=== PATIENT | female | born 1975 | race Caucasian/White ===

== ENCOUNTER 2017-12-08 14:42 | Emergency (ER) | payer MEDICAID ==
[2014-03-16 12:24] VITALS: BMI 37.0
[~2017-12-08 14:42] MED LIST: HYDROCODON-ACE1 EAC7 PO; IBUPROFEN600 MG PO; NASACORT AQ16.5 GM NS; PERCOCET 5-3251 TAB PO; PRENATABS RX TA1 TAB PO
[2017-12-08 15:42] LABS: APPEARANCE HAZY (CLEAR); BILIRUBIN NEGATIVE (NEGATIVE); COLOR YELLOW (YELLOW); GLUCOSE NEGATIVE (NEGATIVE); KETONE NEGATIVE (NEGATIVE); NITRITE NEGATIVE (NEGATIVE); PROTEIN NEGATIVE (NEGATIVE); SPECIFIC GRAVITY 1.015 (1.005-1.020); UROBILINOGEN NORMAL (NORMAL)
[2018-02-19] MEDS ORDERED: [UNRECOGNIZED DRUG - OTHER] PO (09:48)
[2018-02-19] MEDS ORDERED: GLUCOPHAGE1000 MG PO (09:49)
[2018-02-19] MEDS ORDERED: FERROUS GLUCON324 MG PO (09:49)
[2018-02-19] MEDS ORDERED: LISINOPRIL5 MG PO (09:50)
[2018-02-19] MEDS ORDERED: PRAVACHOL20 MG PO (09:50)
[2018-02-19] MEDS ORDERED: OMEPRAZOLE20 M1 PO (09:51)
== END 2017-12-08 16:13 | disposition home or self-care (01) ==
LOC: D.ER 14:42
PROVIDERS: Family Medicine
DX: M54.5 Low back pain (principal); E11.9 Type 2 diabetes mellitus without complications; F17.200 Nicotine dependence, unspecified, uncomplicated

== ENCOUNTER 2018-02-20 05:40 | Day surgery (SDC) | payer MEDICAID ==
[2018-02-19 10:34] LABS: BASOPHILS 0.2 % (0-2); EOSINOPHILS 0.7 % (0-7); HEMATOCRIT 41.4 % (36.0-48.0); HEMOGLOBIN 12.9 g/dL (12-16); IMMATURE GRANULOCYTES 0.1 % (0-5); LYMPHOCYTES 12.8 % (15-50); MCH 25.5 pg (26.0-34.0); MCHC 31.2 g/dL (31.0-37.0); MEAN PLATELET VOLUME 9.4 fL (7.4-10.4); NEUTROPHILS 79.2 % (40-80); PLATELET COUNT 290 10x3/uL (130-400); RBC 5.05 10x6/uL (4.00-5.40); RDW 16.7 % (11.5-14.5); WBC 8.6 10x3/uL (4.8-10.8)
[2018-02-19 10:52] LABS: CALC OSMOLALITY 274 mosm/kg (275-300); CALCIUM 9.9 mg/dL (8.5-10.1); CARBON DIOXIDE 28.1 mmol/L (21.0-32.0); CHLORIDE - SERUM 99 mmol/L (98-107); CREATININE - SERUM 0.7 mg/dL (0.6-1.3); GLUCOSE 174 mg/dL (74-106); POTASSIUM - SERUM 4.1 mmol/L (3.5-5.1); SODIUM 136 mmol/L (136-145); UREA NITROGEN 11 mg/dL (7-18); eGFR NON AFRICAN AMERICAN > 90 mL/min (90-120)
[~2018-02-20] VITALS: Ht 151.1 cm; Wt 84.8 kg
--- NOTE | ~2018-02-20 | OP ---
PATIENT NAME: ALEXSANDER BATISTA MEDICAL RECORD: [id number] :73 LOCATION:D[facility] ADMISSION DATE: SURGEON: MILTON SINHA MD DATE OF OPERATION: 02/20/2018 PREOPERATIVE DIAGNOSES: 1. Dysfunctional uterine bleeding. 2. Pelvic pain. 3. Anal warts. POSTOPERATIVE DIAGNOSES: 1. Dysfunctional uterine bleeding. 2. Pelvic pain. 3. Anal warts. 4. Pelvic adhesive disease. PROCEDURES PERFORMED: 1. Diagnostic laparoscopy. 2. Laparoscopic subtotal hysterectomy with bilateral salpingectomy. 3. Ablation of anal warts. PRIMARY SURGEON: Milton Sinha MD TECHNICAL REP: Dr. Martinez ANESTHESIOLOGIST: Dr. Horne ANESTHETIC: General. FINDINGS: Uterus is slightly enlarged with dense adhesions of the left pelvic sidewalls into the bladder anteriorly. There were some omental adhesions posteriorly. Tubes were interrupted bilaterally and appear otherwise unremarkable. Both ovaries were unremarkable. 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 SPECIMENS REMOVED: 1. Uterus without cervix and with both tubes. 2. Anal warts times 3, largest approximately 1-1.5 cm. SPECIMEN DISPOSITION: All specimens to pathology. ESTIMATED BLOOD LOSS: Less than or equal to 75 cc. FLUIDS: 1 liter lactated Ringer's. URINE OUTPUT: 500 cc of clear urine. COMPLICATIONS: None. DRAINS: Webber to gravity, discontinued when [facility]. INDICATIONS: The patient has intense dysmenorrhea and heavy periods. Workup has been unremarkable and conservative management has failed. The patient desires definitive treatment. Risks, benefits and unique risks to subtotal laparoscopic hysterectomy have been discussed with the patient. The patient OPERATIVE REPORT [id number] ALEXSANDER BATISTA understands all risks and wishes to proceed. DESCRIPTION OF PROCEDURES: The patient is taken to the operating room, where anesthetic is obtained and she is placed in stirrups and prepped and draped. The patient has incision made at the umbilicus and the trocars were replaced. Accessory trocars were placed in the right and left lower quadrants. The graspers take placed from the right side and the left cornual region was elevated. Using coagulation cutter, the tube was freed from its attachments to the adnexa and the dissection was carried down over the utero-ovarian ligament and the adhesions were taken down on the left side. Posterior adhesions were taken down and the dissection continued through the broad ligament and bladder flap was developed. The vessels of the left side are skeletonized, compressed, coagulated, and . Attention was now directed to the right side, where the right tube was elevated. It was removed from its attachments. The dissection was carried down across the utero-ovarian ligament and round ligaments. The anterior leaf of the broad ligament was opened and the bladder flap developed. Posterior leaf was dissected and the vessel skeletonized, compressed, coagulated, and . Using the Harmonic scalpel starting from the left, the uterus was removed from its attachments to the upper cervix. The dissection was continued to the midline and then completed from the right side. The uterus was removed and placed in the cul-de-sac. The inspection of the surgical site revealed adequate hemostasis. The 10-12 trocar, which was placed on the right lower quadrant, is removed and the PlasmaSORD morcellator was inserted. Using the bipolar morcellator, the uterus was removed in several segments. There are a few segments that had dropped into the cul-de-sac and these were easily removed with pickups. Once that had been performed, the morcellator was removed, trocar replaced the morcellator, and the pelvis was copiously irrigated. All irrigant was removed with the patient in reverse Trendelenburg position. The patient now has Interceed placed over the cervical stump after the endocervical canal had been cauterized. To facilitate the cauterization, the Harmonic scalpel was introduced to the canal and universal grinder set up operator inserts hand into the vagina and the tip of the finger is placed on the external os. The Harmonic scalpel was activated and advanced to the tip of the finger and then withdrawn slowly while spending the blade in this way cauterizing the endocervical tissues. Interceed was now placed over the cervical stump. The trocars were removed and the sites closed. With the legs positioned, the anal warts were visualized. They were elevated with pickups and using Bovie cautery removed at the base. After the 3 condylomas were removed, Silvadene cream was applied. Sponge, lap, and needle counts correct times 2. The patient was taken to the recovery room. TRANSINT:[id number] Voice Confirmation ID: [id number] DOCUMENT ID: [id number] MILTON SINHA MD at 1141 CC: [id number] DICTATION DATE: 02/20/18905 BLOCK TRADER: 02/20/18 1236 [facility] [place] 02/20/18 [facility] [address] [id number]
[~2018-02-20 05:40] MED LIST changes: +FERROUS GLUCON324 MG PO; +GLUCOPHAGE1000 MG PO; +LISINOPRIL5 MG PO; +OMEPRAZOLE20 M1 PO; +PRAVACHOL20 MG PO; +[UNRECOGNIZED DRUG - OTHER] PO
[2018-02-20 06:22] VITALS: BP 115/66; Ht 151.1 cm; Wt 84.8 kg
[2018-02-20 06:46] LABS: HCG URINE NEGATIVE (NEGATIVE)
[2018-02-20 10:23] VITALS: BP 154/70
[2018-02-20 10:39] VITALS: BP 151/70
[2018-02-20 10:54] VITALS: BP 137/65
[2018-02-20 11:09] VITALS: BP 137/65
[2018-02-20 11:24] VITALS: BP 125/61
[2018-02-20] MEDS ORDERED: MOBIC7.5 MG PO (11:59)
[2018-02-20] MEDS ORDERED: OXYCODONE HCL5 MG PO (12:00)
[2018-02-20] MEDS ORDERED: NEURONTIN 300300 MG PO (12:02)
== END 2018-02-20 14:50 | disposition home or self-care (01) ==
LOC: D.OPS 05:40 → D.PAN 08:30 → D.OPS 08:30 → D.LD 10:00 → D.OPS 10:30
PROVIDERS: Obstetrics & Gynecology
DX: N93.8 Other specified abnormal uterine and vaginal bleeding (principal); R87.622 Low grade squamous intraepithelial lesion on cytologic smear of vagina (LGSIL); A63.0 Anogenital (venereal) warts; N73.6 Female pelvic peritoneal adhesions (postinfective); Z01.812 Encounter for preprocedural laboratory examination

== ENCOUNTER → 2019-04-11 12:39 | Outpatient (CLI) | payer MEDICAID ==
[2018-02-20 06:22] VITALS: BMI 37.2
[~2019-04-11 12:39] MED LIST changes: +MOBIC7.5 MG PO; +NEURONTIN 300300 MG PO; +OXYCODONE HCL5 MG PO
== END | disposition home or self-care (01) ==
LOC: D.MRI 10:30
PROVIDERS: ATTEND Family Medicine
DX: M54.16 Radiculopathy, lumbar region (principal); R51 Headache

== ENCOUNTER 2021-01-12 16:45 | Outpatient (CLI) | payer MEDICAID ==
[2018-02-20 06:22] VITALS: BMI 37.2
== END 2021-01-12 23:59 | disposition home or self-care (01) ==
LOC: D.MAMMO 16:45
PROVIDERS: ATTEND Student in an Organized Health Care Education/Training Program
DX: Z12.31 Encounter for screening mammogram for malignant neoplasm of breast (principal)